=== PATIENT | female | born 1975 | race American Indian/Alaskan Native ===

== ENCOUNTER 2017-12-13 08:19 | Outpatient (CLI) | payer BC ==
--- NOTE | 2017-12-13 09:14 | Ultrasound Report ---
ULTRASOUND PELVIC COMPLETE ULTRASOUND TRANSVAGINAL HISTORY: Lower abdominal pain. Patient gives history of hysterectomy and left oophorectomy in 2017. COMPARISON: 09/16/15. TECHNIQUE: Transabdominal and transvaginal ultrasound with color doppler interrogation. FINDINGS: Uterus: Hysterectomy has been performed since 09/16/15 exam. The vaginal cuff is unremarkable. Right ovary: 5.4 x 5.2 x 4.3 cm. There are 2 cysts in the right ovary measuring 3.9 cm and 1.7 cm. Left ovary: Not visualized consistent with history of oophorectomy. No pelvic fluid or mass is identified. Normal color doppler interrogation. IMPRESSION: Right ovarian cysts as described. Hysterectomy and left oophorectomy.
== END 2017-12-13 08:20 | disposition home or self-care (01) ==
LOC: US 08:19
PROVIDERS: ATTEND Obstetrics & Gynecology
DX: N83.201 Unspecified ovarian cyst, right side (principal); Z90.710 Acquired absence of both cervix and uterus; Z90.721 Acquired absence of ovaries, unilateral
CPT/HCPCS: 76830; 76856